=== PATIENT | female | born 1940 | race Caucasian/White ===

== ENCOUNTER → 2017-12-01 | Emergency (ER) | payer OTHER ==
[~2017-12-01] VITALS: Ht 154.9 cm; Wt 73.9 kg
[~2017-12-01] MED LIST: AVAPRO300 MG; CARAFATE SU1 G/10 ML PO; CRESTOR10 MG; EXFORGE 10-1601 TAB PO; HUMALOG100 U/M1 SQ; HYZAAR 100/25 T1 TAB PO; LANTUS100 U/ML SQ; LIPITOR20 MG PO; NORVASC5 MG; SYNTEST D.S TAB1 TAB PO; SYNTHROID100 MCG PO; TEKTURNA300 MG
== END | disposition home or self-care (01) ==
LOC: ER 10:18
DX: J45.998 Other asthma (principal); J11.1 Influenza due to unidentified influenza virus with other respiratory manifestations

== ENCOUNTER 2017-12-09 21:20 | Emergency (ER) | payer OTHER ==
[~2017-12-09] VITALS: Ht 152.4 cm; Wt 73.5 kg
== END 2017-12-10 08:51 | disposition home or self-care (01) ==
LOC: ER 21:20
DX: J45.998 Other asthma (principal); B34.9 Viral infection, unspecified; J11.1 Influenza due to unidentified influenza virus with other respiratory manifestations